=== PATIENT | male | born 1950 ===

== ENCOUNTER 2022-07-08 17:43 | Inpatient (IN) ==
[2022-07-08 18:43] LABS: Basophils % 0.3 % (0.0-0.8); Eosinophils % 0.5 % (0.00-10.9); Hematocrit 28.9 VOL% (42.0-52.0); Hemoglobin 8.9 GM/DL (14.0-18.0); Immature Granulocytes Absolute 0.15 #; Lymphocytes # 0.5 10*3/uL (1.4-4.0); Lymphocytes % 6.2 % (21.2-54.2); Mean Corpuscular HGB Conc 30.8 GM/DL (32-36); Mean Corpuscular Volume 101.8 FL (87-102); Mean Platelet Volume 11.7 FL (9.6-12.0); Monocytes # 0.7 10*3/uL (0.11-0.8); Monocytes % 9.3 % (1.7-12.7); Neutrophils % 81.7 % (38.7-73.9); Platelet Count 117 T/CUMM (130-400); Red Blood Count 2.84 MC/CUMM (3.8-5.5); Red Cell Distribution Width 15.9 % (9.3-17.3); White Blood Count 7.4 T/CUMM (4-12)
[2022-07-08] MEDS ORDERED: LEVOFLOXACIN INJ 500 MG/100 ML PREMIX IV ONE (18:47)
[2022-07-08 19:10] LABS: Albumin 1.9 G/DL (3.4-5.0); Band Neutrophils 3 % (0-10); Calcium 8.6 MG/DL (8.5-10.1); Eosinophils 2 % (0-10); Lymphocytes 9 % (20-55); Osmolality,Calculated 300.3 MOS/KG (273-304); Potassium 5.2 MMOL/L (3.5-5.1); Total Cells Counted 100; Total Protein 6.2 G/DL (6.4-8.2)
[2022-07-08 19:11] LABS: Anisocytosis Slight
[2022-07-08 19:12] LABS: Burr Cells Slight
[2022-07-08] MEDS ORDERED: DEXTROSE 50% 25 GM/50 ML VIAL IV STA (19:13)
[2022-07-08] MEDS ORDERED: INSULIN REGULAR 100 UNIT/ML IV STA (19:13)
[2022-07-08 19:14] LABS: Platelet Estimate Normal
[2022-07-08] MEDS ORDERED: DEXTROSE 50% 25 GM/50 ML SYRINGE IV STA (19:19)
[2022-07-08] MEDS ORDERED: clonazePAM 0.5 MG TABLET PO PRN (20:36)
[2022-07-08] MEDS ORDERED: DEXTROSE 50% 25 GM/50 ML VIAL IV PRN (20:41)
[2022-07-08] MEDS ORDERED: NICOTINE 21 MG/24 HR PATCH TRANSDERM PRN (20:41)
[2022-07-08] MEDS ORDERED: GLUCAGON 1 MG VIAL IM PRN (20:41)
[2022-07-08] MEDS ORDERED: ONDANSETRON 4 MG/2 ML VIAL IV PRN (20:41)
[2022-07-08] MEDS ORDERED: ACETAMINOPHEN 325 MG TABLET PO PRN (20:41)
[2022-07-08] MEDS ORDERED: hydrALAZINE 20 MG/1 ML VIAL IV PRN (20:41)
[2022-07-08] MEDS ORDERED: guaiFENesin/DM ER 600-30 MG TABLET PO PRN (20:41)
[2022-07-08] MEDS ORDERED: DOCUSATE SODIUM 100 MG CAPSULE PO PRN (20:41)
[2022-07-08] MEDS ORDERED: carvediloL 25 MG TABLET PO SCH (21:00)
[2022-07-08] MEDS ORDERED: glipiZIDE 5 MG TABLET PO SCH (21:00)
[2022-07-08] MEDS ORDERED: DEXTROSE 10% 250 ML BAG IV PRN (21:14)
[2022-07-08] MEDS: HEPARIN 5,000 UNIT/1 ML VIAL SUBCUT SCH (21:31)
[2022-07-08] MEDS: traZODone 50 MG TABLET PO SCH (21:32)
[2022-07-08] MEDS: ATORVASTATIN 40 MG TABLET PO SCH (21:32)
[2022-07-08] MEDS: INSULIN REGULAR 100 UNIT/ML SUBCUT SCH (21:37)
[2022-07-08] MEDS ORDERED: ONDANSETRON ODT 4 MG TABLET PO PRN (22:56)
[2022-07-08] MEDS ORDERED: ALBUTEROL/IPRATROPIUM 3 ML NEB RESP TX ONE (23:52)
[2022-07-09] MEDS: ALBUTEROL/IPRATROPIUM 3 ML NEB RESP TX SCH ×4 (00:40→19:10)
[2022-07-09 05:20] LABS: Basophils % 0.2 % (0.0-0.8); Eosinophils # 0.1 10*3/uL (0.0-0.87); Eosinophils % 1.7 % (0.00-10.9); Hematocrit 24.7 VOL% (42.0-52.0); Hemoglobin 7.6 GM/DL (14.0-18.0); Immature Granulocytes % 0.8 %; Immature Granulocytes Absolute 0.04 #; Lymphocytes # 0.5 10*3/uL (1.4-4.0); Lymphocytes % 8.8 % (21.2-54.2); Mean Corpuscular HGB Conc 30.8 GM/DL (32-36); Mean Corpuscular Volume 104.2 FL (87-102); Monocytes # 0.5 10*3/uL (0.11-0.8); Monocytes % 10.2 % (1.7-12.7); Neutrophils % 78.3 % (38.7-73.9); Platelet Count 97 T/CUMM (130-400); Red Blood Count 2.37 MC/CUMM (3.8-5.5); Red Cell Distribution Width 15.7 % (9.3-17.3); White Blood Count 5.2 T/CUMM (4-12)
[2022-07-09 05:37] LABS: Calcium 8.4 MG/DL (8.5-10.1); Osmolality,Calculated 304.1 MOS/KG (273-304); Potassium 5.2 MMOL/L (3.5-5.1)
[2022-07-09 05:44] LABS: Folate 4.48 NG/ML (5.38-24.0); Vitamin B12 894 PG/ML (211-911)
[2022-07-09 06:04] LABS: % Iron Saturation 10.9 % (18-50)
[2022-07-09 06:32] LABS: Sedimentation Rate-Westergren 115 MM/HR (0-20)
[2022-07-09] MEDS: INSULIN REGULAR 100 UNIT/ML SUBCUT SCH ×4 (07:39→20:59)
[2022-07-09] MEDS ORDERED: glipiZIDE 5 MG TABLET PO SCH (08:00)
[2022-07-09 08:49] LABS: INR 1.2; PT Patient Result 12.8 SECS (10.1-12.1)
[2022-07-09] MEDS: cefTRIAXone 2,000 MG in SODIUM CHLORIDE 0.9% 100 ML IV SCH (08:54)
[2022-07-09] MEDS: GABAPENTIN 100 MG CAPSULE PO SCH (08:55)
[2022-07-09] MEDS: DULoxetine 30 MG CAPSULE PO SCH (08:55)
[2022-07-09] MEDS: FENOFIBRATE 160 MG TABLET PO SCH (08:55)
[2022-07-09] MEDS: methylPREDNISolone SOD SUC 40 MG/1 ML VIAL IV SCH ×2 (08:55→16:55)
[2022-07-09] MEDS: FUROSEMIDE 40 MG TABLET PO SCH (08:55)
[2022-07-09] MEDS: carvediloL 25 MG TABLET PO SCH ×2 (08:55→16:55)
[2022-07-09] MEDS: amLODIPine 10 MG TABLET PO SCH (08:56)
[2022-07-09] MEDS: PANTOPRAZOLE 40 MG TABLET PO SCH (08:56)
[2022-07-09] MEDS: SODIUM ZIRCONIUM CYCLOSILICATE 10 GM PACK PO SCH (08:56)
[2022-07-09] MEDS ORDERED: CHOLECALCIFEROL 1,000 UNIT TABLET PO SCH (09:00)
[2022-07-09] MEDS: HEPARIN 5,000 UNIT/1 ML VIAL SUBCUT SCH ×2 (09:31→20:59)
[2022-07-09 09:56] LABS: Hemoglobin A1 (Alkaline) 97.9 % (96.5-98.5); Hemoglobin A2 (Alkaline) 2.1 % (1.5-3.5)
[2022-07-09] MEDS: AZITHROMYCIN INJ 500 MG in SODIUM CHLORIDE 0.9% 250 ML IV SCH (10:43)
[2022-07-09] MEDS: FERROUS SULFATE 325 MG TABLET PO SCH ×2 (10:46→16:58)
[2022-07-09] MEDS: CHOLECALCIFEROL 5,000 UNIT TABLET PO SCH ×2 (10:46→20:59)
[2022-07-09] MEDS: FOLIC ACID 1 MG TABLET PO SCH (10:46)
[2022-07-09 11:04] LABS: Glucose,Pleural Fluid 109 MG/DL; LDH,Body Fluid 79 U/L; Total Protein,Body Fluid < 2.0 G/DL
[2022-07-09 11:27] LABS: Lymphocytes,Pleural Fluid 40 %; Monocytes,Pleural Fluid 13 %; Neutrophils,Pleural Fluid 46 %
[2022-07-09 11:28] LABS: RBC,Pleural Fluid 195 T/CUMM
[2022-07-09] MEDS: ATORVASTATIN 40 MG TABLET PO SCH (20:59)
[2022-07-09] MEDS: traZODone 50 MG TABLET PO SCH (20:59)
[2022-07-10] MEDS: ALBUTEROL/IPRATROPIUM 3 ML NEB RESP TX SCH ×4 (00:24→19:59)
[2022-07-10] MEDS: methylPREDNISolone SOD SUC 40 MG/1 ML VIAL IV SCH ×3 (00:34→17:34)
[2022-07-10 03:30] LABS: Hematocrit 26.2 VOL% (42.0-52.0); Hemoglobin 8.1 GM/DL (14.0-18.0); Immature Granulocytes Absolute 0.04 #; Lymphocytes # 0.5 10*3/uL (1.4-4.0); Lymphocytes % 11.2 % (21.2-54.2); Mean Corpuscular HGB Conc 30.9 GM/DL (32-36); Mean Corpuscular Volume 101.2 FL (87-102); Mean Platelet Volume 12.5 FL (9.6-12.0); Monocytes # 0.2 10*3/uL (0.11-0.8); Monocytes % 3.7 % (1.7-12.7); Neutrophils % 84.1 % (38.7-73.9); Platelet Count 116 T/CUMM (130-400); Red Blood Count 2.59 MC/CUMM (3.8-5.5)
[2022-07-10 03:51] LABS: Albumin 1.5 G/DL (3.4-5.0); Bilirubin,Total 0.5 MG/DL (0.20-1.00); Calcium 7.8 MG/DL (8.5-10.1); Osmolality,Calculated 314.3 MOS/KG (273-304); Potassium 5.5 MMOL/L (3.5-5.1); Total Protein 6.1 G/DL (6.4-8.2)
[2022-07-10] MEDS: FOLIC ACID 1 MG TABLET PO SCH (09:22)
[2022-07-10] MEDS: GABAPENTIN 100 MG CAPSULE PO SCH (09:22)
[2022-07-10] MEDS: FUROSEMIDE 40 MG TABLET PO SCH (09:22)
[2022-07-10] MEDS: CHOLECALCIFEROL 5,000 UNIT TABLET PO SCH ×2 (09:22→21:27)
[2022-07-10] MEDS: DULoxetine 30 MG CAPSULE PO SCH (09:23)
[2022-07-10] MEDS: PANTOPRAZOLE 40 MG TABLET PO SCH (09:23)
[2022-07-10] MEDS: carvediloL 25 MG TABLET PO SCH ×2 (09:23→17:34)
[2022-07-10] MEDS: amLODIPine 10 MG TABLET PO SCH (09:23)
[2022-07-10] MEDS: FERROUS SULFATE 325 MG TABLET PO SCH ×2 (09:23→17:34)
[2022-07-10] MEDS: SODIUM ZIRCONIUM CYCLOSILICATE 10 GM PACK PO SCH (09:24)
[2022-07-10] MEDS: cefTRIAXone 2,000 MG in SODIUM CHLORIDE 0.9% 100 ML IV SCH (09:24)
[2022-07-10] MEDS: INSULIN REGULAR 100 UNIT/ML SUBCUT SCH ×4 (09:24→21:28)
[2022-07-10] MEDS: FENOFIBRATE 160 MG TABLET PO SCH (09:25)
[2022-07-10] MEDS: HEPARIN 5,000 UNIT/1 ML VIAL SUBCUT SCH ×2 (09:25→21:28)
[2022-07-10] MEDS: AZITHROMYCIN INJ 500 MG in SODIUM CHLORIDE 0.9% 250 ML IV SCH (11:24)
[2022-07-10] MEDS ORDERED: SODIUM POLYSTYRENE SULFATE 15 GM/60 ML BOTTLE PO ONE (13:00)
[2022-07-10] MEDS: INSULIN GLARGINE 100 UNIT/ML SUBCUT SCH (16:10)
[2022-07-10] MEDS: ATORVASTATIN 40 MG TABLET PO SCH (21:27)
[2022-07-10] MEDS: traZODone 50 MG TABLET PO SCH (22:16)
[2022-07-11] MEDS: methylPREDNISolone SOD SUC 40 MG/1 ML VIAL IV SCH ×2 (00:50→09:12)
[2022-07-11 05:45] LABS: Hematocrit 26.7 VOL% (42.0-52.0); Hemoglobin 8.1 GM/DL (14.0-18.0); Immature Granulocytes Absolute 0.06 #; Lymphocytes # 0.4 10*3/uL (1.4-4.0); Lymphocytes % 7.1 % (21.2-54.2); Mean Corpuscular HGB Conc 30.3 GM/DL (32-36); Mean Corpuscular Volume 103.9 FL (87-102); Mean Platelet Volume 12.6 FL (9.6-12.0); Monocytes # 0.2 10*3/uL (0.11-0.8); Monocytes % 4.2 % (1.7-12.7); Neutrophils % 87.7 % (38.7-73.9); Platelet Count 135 T/CUMM (130-400); Red Blood Count 2.57 MC/CUMM (3.8-5.5); Red Cell Distribution Width 14.9 % (9.3-17.3); White Blood Count 5.8 T/CUMM (4-12)
[2022-07-11 05:56] LABS: Osmolality,Calculated 321.8 MOS/KG (273-304); Potassium 4.6 MMOL/L (3.5-5.1)
[2022-07-11] MEDS: ALBUTEROL/IPRATROPIUM 3 ML NEB RESP TX SCH ×3 (08:05→15:13)
[2022-07-11] MEDS: PANTOPRAZOLE 40 MG TABLET PO SCH (09:00)
[2022-07-11] MEDS: FERROUS SULFATE 325 MG TABLET PO SCH (09:00)
[2022-07-11] MEDS: FOLIC ACID 1 MG TABLET PO SCH (09:00)
[2022-07-11] MEDS: carvediloL 25 MG TABLET PO SCH (09:00)
[2022-07-11] MEDS: SODIUM ZIRCONIUM CYCLOSILICATE 10 GM PACK PO SCH (09:00)
[2022-07-11] MEDS: CHOLECALCIFEROL 5,000 UNIT TABLET PO SCH (09:00)
[2022-07-11] MEDS: GABAPENTIN 100 MG CAPSULE PO SCH (09:00)
[2022-07-11] MEDS: amLODIPine 10 MG TABLET PO SCH (09:00)
[2022-07-11] MEDS: FENOFIBRATE 160 MG TABLET PO SCH (09:00)
[2022-07-11] MEDS: DULoxetine 30 MG CAPSULE PO SCH (09:00)
[2022-07-11] MEDS: HEPARIN 5,000 UNIT/1 ML VIAL SUBCUT SCH (09:03)
[2022-07-11] MEDS: INSULIN GLARGINE 100 UNIT/ML SUBCUT SCH (09:03)
[2022-07-11] MEDS: INSULIN REGULAR 100 UNIT/ML SUBCUT SCH ×2 (09:03→12:12)
[2022-07-11] MEDS: cefTRIAXone 2,000 MG in SODIUM CHLORIDE 0.9% 100 ML IV SCH (09:13)
[2022-07-11] MEDS: AZITHROMYCIN INJ 500 MG in SODIUM CHLORIDE 0.9% 250 ML IV SCH (10:08)
[2022-07-11 12:22] VITALS: BP 176/59
[2022-07-11 22:06] LABS: M. Tuberculosis PCR Result Negative (Negative); M. Tuberculosis PCR Source PLEURAL FLUID
== END 2022-07-11 13:50 | disposition home health service (06) | DRG 843 ==
LOC: N.ED 17:43 → N.3E 19:36 → SUATTDRO 19:36 → N.3E 23:14
PROVIDERS: ADMIT Internal Medicine; ATTEND Internal Medicine